=== PATIENT | female | born 1990 | race Asian ===

== ENCOUNTER 2025-02-08 19:34 | Inpatient (IN) | payer OTHER, SELFPAY ==
[2025-02-08 19:40] VITALS: BP 118/86; PULSE 78; RESP 20; TEMP 36.8; O2SAT 98
[2025-02-08 19:42] VITALS: BP 118/86; PULSE 91; RESP 18; TEMP 36.8; O2SAT 98; BMI 21.2
[2025-02-08 20:17] LABS: Add Manual Diff / Slide Review NO; Hematocrit 36.3 % (36-46); Hemoglobin 12.1 g/dL (12.0-16.0); Lymphocytes Absolute Auto 500 /uL (1100-4500); Mean Corpuscular HGB Conc 33.4 % (30-36); Mean Corpuscular Hemoglobin 27.7 PG (26-34); Mean Corpuscular Volume 82.8 fL (80-100); Platelet Count 321 X10^3/uL (150-400)
[2025-02-08 20:27] LABS: Alanine Aminotransferase 31 IU/L (<35); Albumin 4.0 g/dL (3.5-5.0); Albumin Globulin Ratio 1.3 (1.0-2.8); Alkaline Phosphatase 38 U/L (38-126); Blood Urea Nitrogen 9 mg/dL (7-17); Calcium 8.5 mg/dL (8.4-10.2); Carbon Dioxide 22 mmol/L (22-32); Chloride 105 mmol/L (98-107); Estimated Glomerular Filt Rate > 60 mL/min (>60); Globulin 3.1 g/dL (1.7-4.1); Glucose 179 mg/dL (70-99); Potassium 3.7 mmol/L (3.4-5.1); Sodium 137 mmol/L (137-145); Total Protein 7.1 g/dL (6.3-8.2)
[2025-02-08 20:33] LABS: HEMOLYSIS 34 (0-50)
[2025-02-08 21:10] LABS: Lipase 30352 U/L (23-300)
--- NOTE | 2025-02-08 22:30 | DI.CT.S_ITS ---
PROCEDURE: CT ABDOMEN PELVIS W CON INDICATIONS: Pancreatitis TECHNIQUE: After the administration of intravenous contrast, axial sections acquired from the lung bases to the pubic symphysis. Coronal and sagittal reformats were performed. For radiation dose reduction, the following was used: automated exposure control, adjustment of mA and/or kV according to patient size. COMPARISON: None. FINDINGS: Image quality: Diagnostic. Lower Chest: No significant findings. ABDOMEN: Liver: No solid mass. Hepatic steatosis. Gallbladder: Postcholecystectomy Biliary ducts: Dilation of the common bile duct without choledocholithiasis, likely post reservoir effect of the common bile duct. Pancreas: No ductal dilatation. Diffuse hypoattenuation of the pancreatic parenchyma with moderate retroperitoneal peripancreatic edema. No focal nonenhancing parenchyma. Spleen: Size is within normal limits. Adrenal Glands: No adrenal nodules. Kidneys and Ureters: No hydronephrosis. No solid mass. No complex renal cystic lesion which requires follow up. Stomach and Bowel: Normal colonic caliber, without significant wall thickening. Redundant sigmoid colon which extends into the left mid abdomen. Normal appendix. Peritoneum: Non organized retroperitoneal fluid within the peripancreatic space tracks along the left paracolic gutter and within the pouch of Efren. No peripherally enhancing collection, acute peripancreatic collection or walled-off pancreatic necrosis is identified. Ventral Wall: No significant ventral hernia. Abdominal Nodes: No retroperitoneal or mesenteric adenopathy by size criteria. Vessels: Aorta and inferior vena cava are normal in size. PELVIS: Pelvic Organs: Unremarkable. Bladder: No bladder wall thickening, accounting for underdistention. Pelvic Nodes: No enlarged lymph nodes. Miscellaneous: No inguinal hernias are seen. Bones: Multiple sclerotic foci in the inferior thoracic and lumbar spine measure up to 1.8 x 1.4 cm. The imaging appearance is is atypical for enostosis. IMPRESSION: 1. Acute interstitial edematous pancreatitis with acute peripancreatic fluid collections which are non loculated and nonenhancing. 2. Multiple sclerotic foci in the inferior thoracic and lumbar spine. The imaging characteristics are atypical for enostosis/bone island. Recommend further evaluation with MRI of the thoracic and lumbar spine with and without contrast when clinically feasible and patient is able to tolerate imaging positioning. Communication: The above findings were discussed with the ordering clinician, Dr. Stokes, by Dr. Parson via telephone on 02/08/2025 at 11:58 pm PST. Dictated by: Edward Parson M.D. on 02/08/2025 at 23:51 Approved by: Edward Parson M.D. on 02/09/2025 at 0:01
--- NOTE | 2025-02-08 22:32 | ED.ABDPAIN ---
HPI - Abdominal Pain <Daxa Stokes DO - Last Filed: 02/11/25 07:48> General Chief Complaint: Abdominal Pain Stated Complaint: abd pain Time Seen by Provider: 02/08/25 19:54 Source: patient and EMS Mode of arrival: EMS History of Present Illness HPI narrative: Patient is a healthy 34-year-old female presenting today with severe abdominal pain. She had ERCP done earlier today [facility] with for choledocholithiasis. She reports that on the way home she had severe abdominal pain and nausea. Pain is so bad that she pulled over called 911 they gave her IV Tylenol and she came POV. She continues to feel nauseous pain comes and goes in waves. Records from [facility] have been received and reviewed Postoperative diagnosis include 1. Difficult cannulation with initial cannulation of the PD after needle knife sphincterectomy with pancreatic septostomy performed. Rectal indomethacin given. 2. Subsequent cannulation of the CVD with dilated CBD noted with biliary sphincterotomy extended. 3. Balloon sweeps of the 15 mm yield hard stones and stone debris 4. Occlusion cholangiogram showed no residual filling defects and good flow of contrast at the conclusion of the procedure Related Data Previous Rx's ?Medication ?Instructions ?Recorded hydromorphone 4 mg tablet 4 mg PO Q6H PRN pain #10 tabs 02/10/25 ondansetron 4 mg disintegrating 4 mg PO Q8H PRN nausea and 02/10/25 tablet vomiting #20 tabs pantoprazole 20 mg tablet,delayed 20 mg PO DAILY #30 tabs 02/10/25 release Allergies Allergy/AdvReac Type Severity Reaction Status Date / Time No Known Drug Allergies Allergy Verified 02/08/25 19:43 Patient History <Daxa Stokes DO - Last Filed: 02/11/25 07:48> Social History household members: spouse and children Smoking Status: Never smoker Exam <Daxa Stokes DO - Last Filed: 02/11/25 07:48> Initial Vital Signs Initial Vital Signs: Vital Signs Temperature 98.2 F 02/08/25 19:40 Pulse Rate 78 02/08/25 19:40 Respiratory Rate 20 02/08/25 19:40 Blood Pressure 118/86 02/08/25 19:40 Pulse Oximetry 98 02/08/25 19:40 Oxygen Delivery Method Room Air 02/08/25 19:40 GENERAL: Alert 34-year-old female appears very uncomfortable and in no acute distress. HEENT: Head atraumatic,EOMI, pupils reactive, face symmetric, moist mucous membranes CARDIOVASCULAR: Regular rate and rhythm without murmurs, rubs or gallops. RESPIRATORY: Breath sounds equal bilaterally, no wheezes rales or rhonchi. ABDOMEN: Soft, tender no guarding no rebound EXTREMITIES: Normal range of motion, no clubbing or edema. Neurovascularly intact NEUROLOGICAL: Alert and oriented x4.Normal gait and speech. Cranial nerves II through XII grossly intact. SKIN: Warm, dry, no laceration, no petechiae, no rashes or lesions. <Horacio Gilbert, DO - Last Filed: 02/09/25 00:38> Initial Vital Signs Initial Vital Signs: Vital Signs Temperature 98.2 F 02/08/25 19:40 Pulse Rate 78 02/08/25 19:40 Respiratory Rate 20 02/08/25 19:40 Blood Pressure 118/86 02/08/25 19:40 Pulse Oximetry 98 02/08/25 19:40 Oxygen Delivery Method Room Air 02/08/25 19:40 Course <Daxa Stokes, DO - Last Filed: 02/11/25 07:48> Orders Ordered: Discontinued Medications Acetaminophen (Acetaminophen 325 Mg Tablet) 650 mg PO Q6H PRN PRN Reason: Fever/Mild Pain (1-3) Enoxaparin Sodium (Enoxaparin 40 Mg/0.4 Ml Syringe) 40 mg SUBCUT DAILY [facility] Last Admin: 02/10/25 08:43 Dose: 40 mg Documented By: Admin: 02/09/25 09:51 Dose: 40 mg Documented By: JENNI Hydromorphone HCl (Hydromorphone Hcl 0.5 Mg/0.5 Ml Syringe) 0.5 mg IV NOW ONE Stop: 02/08/25 22:31 Last Admin: 02/08/25 22:36 Dose: 0.5 mg Documented By: MATT Hydromorphone HCl (Hydromorphone 1 Mg/Ml Syringe) 1 mg IV Q3H PRN PRN Reason: Pain, Moderate (4-6) Last Admin: 02/09/25 13:15 Dose: 1 mg Documented By: Admin: 02/09/25 09:51 Dose: 1 mg Documented By: JENNI Hydromorphone HCl (Hydromorphone 1 Mg/Ml Syringe) 1 mg IV Q2H PRN PRN Reason: Pain, Moderate (4-6) Last Admin: 02/09/25 21:43 Dose: 1 mg Documented By: Admin: 02/09/25 19:37 Dose: 1 mg Documented By: Admin: 02/09/25 17:01 Dose: 1 mg Documented By: Admin: 02/09/25 15:01 Dose: 1 mg Documented By: JENNI Hydromorphone HCl (Hydromorphone 1 Mg/Ml Syringe) 2 mg IV Q2H PRN PRN Reason: Pain, Moderate (4-6) Last Admin: 02/10/25 11:47 Dose: 2 mg Documented By: ESReno Admin: 02/10/25 06:06 Dose: 2 mg Documented By: Admin: 02/10/25 02:50 Dose: 2 mg Documented By: Admin: 02/09/25 23:47 Dose: 2 mg Documented By: AM Sodium Chloride (Normal Saline 0.9%) 1,000 mls @ 1,000 mls/hr IV BOLUS ONE Stop: 02/08/25 23:29 Last Infusion: 02/09/25 00:05 Dose: Infused Documented By: RLCriselda Admin: 02/08/25 22:35 Dose: 1,000 mls/hr Documented By: MATT Sodium Chloride (Normal Saline 0.9%) 1,000 mls @ 100 mls/hr IV CONT PARI Last Infusion: 02/10/25 11:00 Dose: Infused Documented By: Admin: 02/10/25 08:42 Dose: 100 mls/hr Documented By: Infusion: 02/10/25 08:42 Dose: Infused Documented By: Admin: 02/09/25 23:38 Dose: 100 mls/hr Documented By: Infusion: 02/09/25 19:53 Dose: Infused Documented By: Admin: 02/09/25 09:53 Dose: 100 mls/hr Documented By: Infusion: 02/09/25 09:53 Dose: Infused Documented By: Admin: 02/09/25 01:59 Dose: 100 mls/hr Documented By: AD POTASSIUM CHLORIDE IN WATER (Potassium Cl 10 Meq/100 Ml Susana) 10 meq in 100 mls @ 100 mls/hr IV Q1H [facility] Stop: 02/10/25 10:44 Last Admin: 02/10/25 07:36 Dose: Not Given Documented By: MIKA Magnesium Chloride (Magnesium Chloride 64 Mg Tablet) 128 mg PO NOW ONE Stop: 02/10/25 13:01 Last Admin: 02/10/25 13:11 Dose: 128 mg Documented By: MIKA Morphine Sulfate (Morphine 4 Mg/Ml Inj) 3 mg IV Q2HR PRN PRN Reason: Pain, Severe (7-10) Last Admin: 02/09/25 05:02 Dose: 3 mg Documented By: Admin: 02/09/25 02:18 Dose: 3 mg Documented By: REINALDO Naloxone HCl (Naloxone 0.4 Mg/Ml Vial) 0.2 mg IV Q2MIN PRN PRN Reason: Opiate Reversal Ondansetron HCl (Ondansetron 4 Mg/2 Ml Inj) 4 mg IV NOW PRN PRN Reason: Nausea And Vomiting Ondansetron HCl (Ondansetron 4 Mg Odt) 4 mg PO NOW PRN PRN Reason: Nausea And Vomiting Ondansetron HCl (Ondansetron 4 Mg/2 Ml Inj) 4 mg IV Q8HR PRN PRN Reason: Nausea And Vomiting Last Admin: 02/09/25 05:02 Dose: 4 mg Documented By: REINALDO Ondansetron HCl (Ondansetron 4 Mg/2 Ml Inj) 4 mg IV Q4HR [facility] Ondansetron HCl (Ondansetron 4 Mg/2 Ml Inj) 4 mg IV Q4HR PRN PRN Reason: Nausea And Vomiting Oxycodone HCl (Oxycodone Ir 5 Mg Tablet) 5 mg PO Q3H PRN PRN Reason: Pain, Moderate (4-6) Last Admin: 02/09/25 12:00 Dose: 5 mg Documented By: Admin: 02/09/25 04:21 Dose: 5 mg Documented By: REINALDO Pantoprazole Sodium (Pantoprazole Dr 20 Mg Tablet) 20 mg PO NOW ONE Stop: 02/10/25 09:40 Last Admin: 02/10/25 09:47 Dose: 20 mg Documented By: MIKA Potassium Chloride (Potassium Chloride 20 Meq Tab) 40 meq PO Q6H [facility] Stop: 02/10/25 14:01 Last Admin: 02/10/25 13:11 Dose: 40 meq Documented By: Admin: 02/10/25 08:43 Dose: 40 meq Documented By: JENNI Prochlorperazine (Prochlorperazine 10 Mg/2 Ml Vial) 5 mg IV Q6HR PRN PRN Reason: Nausea Last Admin: 02/09/25 19:37 Dose: 5 mg Documented By: AM Vital Signs Vital signs: Vital Signs - 8 hr 02/08/25 19:40 02/08/25 19:42 02/08/25 23:07 Temperature 98.2 F 98.2 F Pulse Rate 78 91 H 87 Respiratory Rate 20 18 Blood Pressure 118/86 Blood Pressure [Left Arm] 118/86 Pulse Oximetry 98 98 97 Oxygen Delivery Method Room Air Room Air 02/08/25 23:09 02/08/25 23:09 02/08/25 23:30 Temperature Pulse Rate 84 66 Respiratory Rate 17 12 Blood Pressure 126/87 Blood Pressure [Left Arm] Pulse Oximetry 98 99 Oxygen Delivery Method Room Air 02/08/25 23:30 02/09/25 00:00 02/09/25 00:00 Temperature Pulse Rate 62 Respiratory Rate 13 Blood Pressure 113/75 133/77 Blood Pressure [Left Arm] Pulse Oximetry 99 Oxygen Delivery Method Room Air <Horacio Gilbert, DO - Last Filed: 02/09/25 00:38> Orders Ordered: Discontinued Medications Acetaminophen (Acetaminophen 325 Mg Tablet) 650 mg PO Q6H PRN PRN Reason: Fever/Mild Pain (1-3) Enoxaparin Sodium (Enoxaparin 40 Mg/0.4 Ml Syringe) 40 mg SUBCUT DAILY [facility] Last Admin: 02/10/25 08:43 Dose: 40 mg Documented By: Admin: 02/09/25 09:51 Dose: 40 mg Documented By: JENNI Hydromorphone HCl (Hydromorphone Hcl 0.5 Mg/0.5 Ml Syringe) 0.5 mg IV NOW ONE Stop: 02/08/25 22:31 Last Admin: 02/08/25 22:36 Dose: 0.5 mg Documented By: MATT Hydromorphone HCl (Hydromorphone 1 Mg/Ml Syringe) 1 mg IV Q3H PRN PRN Reason: Pain, Moderate (4-6) Last Admin: 02/09/25 13:15 Dose: 1 mg Documented By: Admin: 02/09/25 09:51 Dose: 1 mg Documented By: JENNI Hydromorphone HCl (Hydromorphone 1 Mg/Ml Syringe) 1 mg IV Q2H PRN PRN Reason: Pain, Moderate (4-6) Last Admin: 02/09/25 21:43 Dose: 1 mg Documented By: Admin: 02/09/25 19:37 Dose: 1 mg Documented By: Admin: 02/09/25 17:01 Dose: 1 mg Documented By: Admin: 02/09/25 15:01 Dose: 1 mg Documented By: JENNI Hydromorphone HCl (Hydromorphone 1 Mg/Ml Syringe) 2 mg IV Q2H PRN PRN Reason: Pain, Moderate (4-6) Last Admin: 02/10/25 11:47 Dose: 2 mg Documented By: Admin: 02/10/25 06:06 Dose: 2 mg Documented By: Admin: 02/10/25 02:50 Dose: 2 mg Documented By: Admin: 02/09/25 23:47 Dose: 2 mg Documented By: AM Sodium Chloride (Normal Saline 0.9%) 1,000 mls @ 1,000 mls/hr IV BOLUS ONE Stop: 02/08/25 23:29 Last Infusion: 02/09/25 00:05 Dose: Infused Documented By: Admin: 02/08/25 22:35 Dose: 1,000 mls/hr Documented By: HNG Sodium Chloride (Normal Saline 0.9%) 1,000 mls @ 100 mls/hr IV CONT PARI Last Infusion: 02/10/25 11:00 Dose: Infused Documented By: Admin: 02/10/25 08:42 Dose: 100 mls/hr Documented By: Infusion: 02/10/25 08:42 Dose: Infused Documented By: YALesia Admin: 02/09/25 23:38 Dose: 100 mls/hr Documented By: Infusion: 02/09/25 19:53 Dose: Infused Documented By: Admin: 02/09/25 09:53 Dose: 100 mls/hr Documented By: Infusion: 02/09/25 09:53 Dose: Infused Documented By: Admin: 02/09/25 01:59 Dose: 100 mls/hr Documented By: REINALDO POTASSIUM CHLORIDE IN WATER (Potassium Cl 10 Meq/100 Ml Susana) 10 meq in 100 mls @ 100 mls/hr IV Q1H [facility] Stop: 02/10/25 10:44 Last Admin: 02/10/25 07:36 Dose: Not Given Documented By: MIKA Magnesium Chloride (Magnesium Chloride 64 Mg Tablet) 128 mg PO NOW ONE Stop: 02/10/25 13:01 Last Admin: 02/10/25 13:11 Dose: 128 mg Documented By: MIKA Morphine Sulfate (Morphine 4 Mg/Ml Inj) 3 mg IV Q2HR PRN PRN Reason: Pain, Severe (7-10) Last Admin: 02/09/25 05:02 Dose: 3 mg Documented By: Admin: 02/09/25 02:18 Dose: 3 mg Documented By: REINALDO Naloxone HCl (Naloxone 0.4 Mg/Ml Vial) 0.2 mg IV Q2MIN PRN PRN Reason: Opiate Reversal Ondansetron HCl (Ondansetron 4 Mg/2 Ml Inj) 4 mg IV NOW PRN PRN Reason: Nausea And Vomiting Ondansetron HCl (Ondansetron 4 Mg Odt) 4 mg PO NOW PRN PRN Reason: Nausea And Vomiting Ondansetron HCl (Ondansetron 4 Mg/2 Ml Inj) 4 mg IV Q8HR PRN PRN Reason: Nausea And Vomiting Last Admin: 02/09/25 05:02 Dose: 4 mg Documented By: REINALDO Ondansetron HCl (Ondansetron 4 Mg/2 Ml Inj) 4 mg IV Q4HR [facility] Ondansetron HCl (Ondansetron 4 Mg/2 Ml Inj) 4 mg IV Q4HR PRN PRN Reason: Nausea And Vomiting Oxycodone HCl (Oxycodone Ir 5 Mg Tablet) 5 mg PO Q3H PRN PRN Reason: Pain, Moderate (4-6) Last Admin: 02/09/25 12:00 Dose: 5 mg Documented By: Admin: 02/09/25 04:21 Dose: 5 mg Documented By: REINALDO Pantoprazole Sodium (Pantoprazole Dr 20 Mg Tablet) 20 mg PO NOW ONE Stop: 02/10/25 09:40 Last Admin: 02/10/25 09:47 Dose: 20 mg Documented By: MIKA Potassium Chloride (Potassium Chloride 20 Meq Tab) 40 meq PO Q6H [facility] Stop: 02/10/25 14:01 Last Admin: 02/10/25 13:11 Dose: 40 meq Documented By: Admin: 02/10/25 08:43 Dose: 40 meq Documented By: JENNI Prochlorperazine (Prochlorperazine 10 Mg/2 Ml Vial) 5 mg IV Q6HR PRN PRN Reason: Nausea Last Admin: 02/09/25 19:37 Dose: 5 mg Documented By: AM Vital Signs Vital signs: Vital Signs - 8 hr 02/08/25 19:40 02/08/25 19:42 02/08/25 23:07 Temperature 98.2 F 98.2 F Pulse Rate 78 91 H 87 Respiratory Rate 20 18 Blood Pressure 118/86 Blood Pressure [Left Arm] 118/86 Pulse Oximetry 98 98 97 Oxygen Delivery Method Room Air Room Air 02/08/25 23:09 02/08/25 23:09 02/08/25 23:30 Temperature Pulse Rate 84 66 Respiratory Rate 17 12 Blood Pressure 126/87 Blood Pressure [Left Arm] Pulse Oximetry 98 99 Oxygen Delivery Method Room Air 02/08/25 23:30 02/09/25 00:00 02/09/25 00:00 Temperature Pulse Rate 62 Respiratory Rate 13 Blood Pressure 113/75 133/77 Blood Pressure [Left Arm] Pulse Oximetry 99 Oxygen Delivery Method Room Air MDM - Abdominal Pain <Daxa Stokes, - Last Filed: 02/11/25 07:48> Lab Data 02/10/25 05:58 02/10/25 05:58 Labs: Lab Results 02/08/25 02/08/25 Range/Units 20:08 22:52 WBC 9.8 (4.5-11.0) X10^3/uL RBC 4.39 (4.0-5.2) X10^6/uL Hgb 12.1 (12.0-16.0) g/dL Hct 36.3 (36-46) % MCV 82.8 (80-100) fL MCH 27.7 (26-34) PG MCHC 33.4 (30-36) % RDW 13.1 (11.6-14.8) % Plt Count 321 (150-400) X10^3/uL Neut % (Auto) 94.0 H (50-75) % Lymph % (Auto) 4.9 L (25-40) % [place] % (Auto) 1.0 L (3-14) % Eos % (Auto) 0.0 L (2-4) % Baso % (Auto) 0.1 (0-2) % Neut # (Auto) 9200 H (0864-0761) /uL Lymph # (Auto) 500 L (1168-2786) /uL [place] # (Auto) 100 (0-900) /uL Eos # (Auto) 0 (0-450) /uL Baso # (Auto) 0 (0-100) /uL Sodium 137 (137-145) mmol/L Potassium 3.7 (3.4-5.1) mmol/L Chloride 105 (98-107) mmol/L Carbon Dioxide 22 (22-32) mmol/L BUN 9 (7-17) mg/dL Creatinine 0.55 (0.52-1.04) mg/dL Estimated GFR > 60 (>60) mL/min BUN/Creatinine Ratio 16.4 (6-22) Glucose 179 H (70-99) mg/dL Calcium 8.5 (8.4-10.2) mg/dL Total Bilirubin 0.6 (0.2-1.3) mg/dL AST 43 H (14-36) IU/L ALT 31 (<35) IU/L Alkaline Phosphatase 38 (38-126) U/L Total Protein 7.1 (6.3-8.2) g/dL Albumin 4.0 (3.5-5.0) g/dL Globulin 3.1 (1.7-4.1) g/dL Albumin/Globulin Ratio 1.3 (1.0-2.8) Lipase 04394 H (23-300) U/L Urine RBC 1-5/hpf (0-5/HPF) Urine WBC 0-1/hpf (0-5/HPF) Ur Squamous Epith Cells 1-5 /hpf (0-5/HPF) Urine Bacteria Few (2-10) H (None) Ur Culture Indicated? Cult not indicated Vol Urine Centrifuged 10ml (spun) Point of care testing: Point of Care Testing Test Results Negative Urine Dip Bedside Urine Glucose 100 mg/dl Bedside Urine Bilirubin - Negative Bedside Urine Ketone +/- 5 Urine Specific [place] 1.015 Bedside Urine Occult Blood + Bedside Urine pH 6.5 Bedside Urine Protein - Negative Bedside Urine Urobilinogen - Negative Bedside Urine Nitrite - Negative Bedside Urine Leukocytes - Negative Esterase Imaging Data CT scan - abdomen/pelvis: Radiologist's Impression: PROCEDURE: CT ABDOMEN PELVIS W CON INDICATIONS: Pancreatitis TECHNIQUE: After the administration of intravenous contrast, axial sections acquired from the lung bases to the pubic symphysis. Coronal and sagittal reformats were performed. For radiation dose reduction, the following was used: automated exposure control, adjustment of mA and/or kV according to patient size. COMPARISON: None. FINDINGS: Image quality: Diagnostic. Lower Chest: No significant findings. ABDOMEN: Liver: No solid mass. Hepatic steatosis. Gallbladder: Postcholecystectomy Biliary ducts: Dilation of the common bile duct without choledocholithiasis, likely post reservoir effect of the common bile duct. Pancreas: No ductal dilatation. Diffuse hypoattenuation of the pancreatic parenchyma with moderate retroperitoneal peripancreatic edema. No focal nonenhancing parenchyma. Spleen: Size is within normal limits. Adrenal Glands: No adrenal nodules. Kidneys and Ureters: No hydronephrosis. No solid mass. No complex renal cystic lesion which requires follow up. Stomach and Bowel: Normal colonic caliber, without significant wall thickening. Redundant sigmoid colon which extends into the left mid abdomen. Normal appendix. Peritoneum: Non organized retroperitoneal fluid within the peripancreatic space tracks along the left paracolic gutter and within the pouch of Efren. No peripherally enhancing collection, acute peripancreatic collection or walled-off pancreatic necrosis is identified. Ventral Wall: No significant ventral hernia. Abdominal Nodes: No retroperitoneal or mesenteric adenopathy by size criteria. Vessels: Aorta and inferior vena cava are normal in size. PELVIS: Pelvic Organs: Unremarkable. Bladder: No bladder wall thickening, accounting for underdistention. Pelvic Nodes: No enlarged lymph nodes. Miscellaneous: No inguinal hernias are seen. Bones: Multiple sclerotic foci in the inferior thoracic and lumbar spine measure up to 1.8 x 1.4 cm. The imaging appearance is is atypical for enostosis. IMPRESSION: 1. Acute interstitial edematous pancreatitis with acute peripancreatic fluid collections which are non loculated and nonenhancing. 2. Multiple sclerotic foci in the inferior thoracic and lumbar spine. The imaging characteristics are atypical for enostosis/bone island. Recommend further evaluation with MRI of the thoracic and lumbar spine with and without contrast when clinically feasible and patient is able to tolerate imaging positioning. Communication: The above findings were discussed with the ordering clinician, Dr. Stokes, by Dr. Parson via telephone on 02/08/2025 at 11:58 pm PST. Dictated by: Edward Parson M.D. on 02/08/2025 at 23:51 MDM Narrative Medical decision making narrative: MDM CC: Abdominal pain Complicating co-morbidities: Choledocholithiasis Data collected from: Patient and has been Medical records reviewed: [facility] earlier today Differential considered: Perforation pancreatitis bowel obstruction Exam documented above, pertinent findings include: Patient 34-year-old female appears very uncomfortable abdomen is tender Lab Test results independently reviewed as above. Pertinent findings: Lipase 30,352 Bilirubin 0.6, AST 43, ALT 31 alk-phos 38 CBC shows no leukocytosis or anemia Independently reviewed EKG as above Imaging studies independently reviewed: CT pancreatitis no significant complication. There is concern of the lumbar spine radiology Dr. Varela did call recommended are with and without contrast, nonemergent Consultations: [phone] DR. Dodge recommends reaching out to GI if they do not recommend transfer okay to keep IA and he will consult [phone] DR. Campuzano, GI at [facility] updated patient's symptoms test results okay to treat conservatively however if symptoms worsen may need transferring back Treatments: IV fluids Dilaudid Zofran Re-evaluations: [ ] Discussion: Patient 34-year-old female presenting today with abdominal pain. This post ERCP pain. She is found to have pancreatitis with a lipase of 30,000. No leukocytosis. Contacted GI who recommended supportive care only. She is receiving IV fluids pain medications overall appears much more comfortable. <Horacio Gilbert, DO - Last Filed: 02/09/25 00:38> Lab Data Labs: Lab Results 02/08/25 02/08/25 Range/Units 20:08 22:52 WBC 9.8 (4.5-11.0) X10^3/uL RBC 4.39 (4.0-5.2) X10^6/uL Hgb 12.1 (12.0-16.0) g/dL Hct 36.3 (36-46) % MCV 82.8 (80-100) fL MCH 27.7 (26-34) PG MCHC 33.4 (30-36) % RDW 13.1 (11.6-14.8) % Plt Count 321 (150-400) X10^3/uL Neut % (Auto) 94.0 H (50-75) % Lymph % (Auto) 4.9 L (25-40) % [place] % (Auto) 1.0 L (3-14) % Eos % (Auto) 0.0 L (2-4) % Baso % (Auto) 0.1 (0-2) % Neut # (Auto) 9200 H (2847-6361) /uL Lymph # (Auto) 500 L (8760-2905) /uL [place] # (Auto) 100 (0-900) /uL Eos # (Auto) 0 (0-450) /uL Baso # (Auto) 0 (0-100) /uL Sodium 137 (137-145) mmol/L Potassium 3.7 (3.4-5.1) mmol/L Chloride 105 (98-107) mmol/L Carbon Dioxide 22 (22-32) mmol/L BUN 9 (7-17) mg/dL Creatinine 0.55 (0.52-1.04) mg/dL Estimated GFR > 60 (>60) mL/min BUN/Creatinine Ratio 16.4 (6-22) Glucose 179 H (70-99) mg/dL Calcium 8.5 (8.4-10.2) mg/dL Total Bilirubin 0.6 (0.2-1.3) mg/dL AST 43 H (14-36) IU/L ALT 31 (<35) IU/L Alkaline Phosphatase 38 (38-126) U/L Total Protein 7.1 (6.3-8.2) g/dL Albumin 4.0 (3.5-5.0) g/dL Globulin 3.1 (1.7-4.1) g/dL Albumin/Globulin Ratio 1.3 (1.0-2.8) Lipase 27637 H (23-300) U/L Urine RBC 1-5/hpf (0-5/HPF) Urine WBC 0-1/hpf (0-5/HPF) Ur Squamous Epith Cells 1-5 /hpf (0-5/HPF) Urine Bacteria Few (2-10) H (None) Ur Culture Indicated? Cult not indicated Vol Urine Centrifuged 10ml (spun) Point of care testing: Point of Care Testing Test Results Negative Urine Dip Bedside Urine Glucose 100 mg/dl Bedside Urine Bilirubin - Negative Bedside Urine Ketone +/- 5 Urine Specific [place] 1.015 Bedside Urine Occult Blood + Bedside Urine pH 6.5 Bedside Urine Protein - Negative Bedside Urine Urobilinogen - Negative Bedside Urine Nitrite - Negative Bedside Urine Leukocytes - Negative Esterase MDM Narrative Medical decision making narrative: [place] CC: Abdominal pain Complicating co-morbidities: Choledocholithiasis Data collected from: Patient and has been Medical records reviewed: [facility] earlier today Differential considered: Perforation pancreatitis bowel obstruction Exam documented above, pertinent findings include: Patient 34-year-old female appears very uncomfortable abdomen is tender Lab Test results independently reviewed as above. Pertinent findings: Lipase 30,352 Bilirubin 0.6, AST 43, ALT 31 alk-phos 38 CBC shows no leukocytosis or anemia Independently reviewed EKG as above Imaging studies independently reviewed: CT pancreatitis no significant complication. There is concern of the lumbar spine radiology Dr. Varela did call recommended are with and without contrast, nonemergent Consultations: [phone] DR. Dodge recommends reaching out to GI if they do not recommend transfer okay to keep IA and he will consult [phone] DR. Campuzano, GI at [facility] updated patient's symptoms test results okay to treat conservatively however if symptoms worsen may need transferring back Treatments: IV fluids Dilaudid Zofran Re-evaluations: Discussion: Patient 34-year-old female presenting today with abdominal pain. This post ERCP pain. She is found to have pancreatitis with a lipase of 30,000. No leukocytosis. Contacted GI who recommended supportive care only. She is receiving IV fluids pain medications overall appears much more comfortable. Case discussed with hospitalist graciously accepted the patient for inpatient admission Discharge Plan Departure Patient Disposition: Admitted As Inpatient Clinical Impression: Lesion of lumbar spine Pancreatitis Qualifiers: Chronicity: acute Pancreatitis type: idiopathic Acute pancreatitis complication: unspecified Qualified Code(s): K85.00 - Idiopathic acute pancreatitis without necrosis or infection Admit Date/Time: 02/09/25 00:38 Admit Provider: Sage Dailey
[2025-02-08] MEDS: SODIUM CHLORIDE 0.9% 1,000 ML 1000 ML IV (22:35)
[2025-02-08 23:07] VITALS: PULSE 87; O2SAT 97
[2025-02-08 23:09] VITALS: BP 126/87; PULSE 84; RESP 17; O2SAT 98
[2025-02-08 23:30] VITALS: BP 113/75; PULSE 66; RESP 12; O2SAT 99
[2025-02-08 23:32] LABS: Culture Indicated Urine Cult Not Indicated
[2025-02-09] VITALS (9 sets, daily range): BP systolic 108–138; BP diastolic 66–89; PULSE 62–89; RESP 12–18; TEMP 36.7–37.3; O2SAT 97–99; BMI 21.2
[2025-02-09] MEDS: SODIUM CHLORIDE 0.9% 1,000 ML 100 ML IV ×3 (01:59→23:38)
[2025-02-09] MEDS: MORPHINE 4 MG/ML INJ 3 MG IV ×2 (02:18→05:02)
[2025-02-09] MEDS: ONDANSETRON 4 MG/2 ML INJ IV (05:02)
--- NOTE | 2025-02-09 06:45 | P.HP_ITS ---
History of Present Illness History of Present Illness Date Patient Seen: 02/09/25 Time Patient Seen: 06:45 Chief complaint: abd pain Narrative: The pt is a 34 yo who underwent a ERCP on 02/08 the day of presentation to the Er for gallstones by Dr. Gaston, GI specialist at [facility] (has had a lap joaquim in 11/22) and had severe pain afterwards while driving home just several hours after the procedure. She called 911 and was brought to our facility for evaluation. The pain is mid-epigastric radiating to the back. Her lipase in the ER was >30,000. She has nausea and vomiting, no fevers, hx of lower back pain since 2019 which she blames on her epidural from child . She denies any other PMHx, has been on Protonix and propanolol, she was born in the [facility] and has family member with TB and tests positive when tested. Pain is rated a 3-4 out of 10 during my interview [facility] Social History household members: spouse and children Smoking Status: Never smoker Meds Home Medications and Allergies Allergies Allergy/AdvReac Type Severity Reaction Status Date / Time No Known Drug Allergies Allergy Verified 02/08/25 19:43 Exam Vital Signs (past 8 hours): - 02/08/25 23:07 02/08/25 23:09 02/08/25 23:09 Temperature Pulse Rate 87 84 Respiratory Rate 17 Blood Pressure 126/87 Pulse Oximetry 97 98 Oxygen Delivery Method Room Air Oxygen Flow Rate 02/08/25 23:30 02/08/25 23:30 02/09/25 00:00 Temperature Pulse Rate 66 62 Respiratory Rate 12 13 Blood Pressure 113/75 Pulse Oximetry 99 99 Oxygen Delivery Method Room Air Oxygen Flow Rate 02/09/25 00:00 02/09/25 00:30 02/09/25 00:30 Temperature Pulse Rate 71 Respiratory Rate 12 Blood Pressure 133/77 108/69 Pulse Oximetry 98 Oxygen Delivery Method Oxygen Flow Rate 02/09/25 01:00 02/09/25 01:00 02/09/25 01:21 Temperature 99.1 F Pulse Rate 64 86 Respiratory Rate 12 18 Blood Pressure 121/66 138/89 Pulse Oximetry 98 97 Oxygen Delivery Method Oxygen Flow Rate 0 Oxygen Delivery Method Room Air Oxygen Flow Rate 0 Const General: cooperative, healthy appearing and comfortable Orientation: alert and oriented x3 Resp Effort & Inspection: normal respiratory effort Auscultation: clear to auscultation bilaterally Cardio Rate: regular rate Rhythm: regular rhythm Neuro General: moves all extremities and no focal motor deficits Objective Labs 02/08/25 20:08 02/08/25 20:08 Labs: Laboratory Results - last 24 hr 02/08/25 02/08/25 20:08 22:52 WBC 9.8 RBC 4.39 Hgb 12.1 Hct 36.3 MCV 82.8 MCH 27.7 MCHC 33.4 RDW 13.1 Plt Count 321 Neut % (Auto) 94.0 H Lymph % (Auto) 4.9 L [place] % (Auto) 1.0 L Eos % (Auto) 0.0 L Baso % (Auto) 0.1 Neut # (Auto) 9200 H Lymph # (Auto) 500 L [place] # (Auto) 100 Eos # (Auto) 0 Baso # (Auto) 0 Sodium 137 Potassium 3.7 Chloride 105 Carbon Dioxide 22 BUN 9 Creatinine 0.55 Estimated GFR > 60 BUN/Creatinine Ratio 16.4 Glucose 179 H Calcium 8.5 Total Bilirubin 0.6 AST 43 H ALT 31 Alkaline Phosphatase 38 Total Protein 7.1 Albumin 4.0 Globulin 3.1 Albumin/Globulin Ratio 1.3 Lipase 35320 H Urine RBC 1-5/hpf Urine WBC 0-1/hpf Ur Squamous Epith Cells 1-5 /hpf Urine Bacteria Few (2-10) H Ur Culture Indicated? Cult not indicated Vol Urine Centrifuged 10ml (spun) Assessment & Plan Assessment & Plan narrative: 1. Acute Pancreatitis-post cannulation of the CBD by ERCP. The reports from the procedure stated that a sphincterotomy was performed and 3 stones removed, IVFluids started, anti-emetics ordered and IV pain meds available. 2. 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 It appears chronic in nature at least for the past 5 years, and inpatient vs outpt work up is needed, MRI ordered, CT scan reviewed by myself, pain meds available, Time-Based Coding :: [TOTAL MINUTES] spent with patient and on the chart (including review of chart, obtaining history, exam, reviewing outside data, placing orders, documenting exam and treatment plan, and counseling patient) on [DATE]. Quality VTE Deep Vein Thrombosis/Pulmonary Embolism Present on Admission: No
--- NOTE | 2025-02-09 07:09 | DI.MRI.S_ITS ---
PROCEDURE: MR THORACIC SPINE WO/W CON INDICATIONS: lytic lesion in spine TECHNIQUE: Noncontrast sagittal T1 spin echo and T2 fast spin echo, sagittal STIR, axial T1 and T2 fast spin echo through the thoracic spine. After the administration of contrast, axial and sagittal T1 spin echo with fat saturation through the thoracic spine. COMPARISON: [facility], CT, CT ABDOMEN PELVIS W CON, 02/08/2025, 22:59. FINDINGS: Image quality: Excellent. Alignment and curvature: There is normal bony alignment. Marrow: Marrow is of normal overall signal. No acute vertebral body compression fractures. Previously identified areas of sclerosis within the lower lumbar spine demonstrate no appreciable contrast enhancement. They are hypointense on T1. Spinal cord: Visualized spinal cord is of normal signal and size, without abnormal enhancement. Paraspinous soft tissues: No paravertebral masses or abnormal enhancement. Miscellaneous: Central canal and foramina appear widely patent at all scanned levels. Pancreatic edema with adjacent peripancreatic fluid is present. IMPRESSION: Peripancreatic edema and fluid most consistent with pancreatitis. No organized fluid collection. Areas of sclerosis within the lower thoracic spine vertebral bodies demonstrate no enhancement. There are hypointense on T1. Etiology remains indeterminate although numerous bone island/dystrophic calcification should be considered. As clinically indicated, bone scan may be helpful for further evaluation. Dictated by: Melissa Davis M.D. on 02/09/2025 at 13:24 Approved by: Melissa Davis M.D. on 02/09/2025 at 13:28
--- NOTE | 2025-02-09 07:10 | DI.MRI.S_ITS ---
PROCEDURE: MR LUMBAR SPINE WO/W CON INDICATIONS: lytic lesion on CT scan TECHNIQUE: Noncontrast sagittal T1 spin echo and T2 fast spin echo, sagittal STIR, axial T1 and T2 fast spin echo through the lumbar spine. In cases with scoliosis, additional coronal T2 fast spin echo may be performed. After the administration of contrast, sagittal and axial T1 spin echo with fat saturation through the lumbar spine. COMPARISON: [facility], MR, MR THORACIC SPINE WO/W CON, 02/09/2025, 11:47. [facility], CT, CT ABDOMEN PELVIS W CON, 02/08/2025, 22:59. FINDINGS: Image quality: Excellent. Alignment and curvature: There is normal bony alignment. Marrow: Marrow is of normal overall signal. Previously identified scattered areas of sclerosis within the lumbar spine demonstrate no contrast enhancement. There are hypointense on T1. No acute vertebral body compression fractures. No suspicious marrow enhancement. Spinal cord: Conus medullaris terminates at the L1 level. Visualized spinal cord demonstrates normal signal, without suspicious enhancement. Paraspinous soft tissues: No paravertebral masses or abnormal enhancement. Mild disc desiccation is present at L5-S1. No gross spinal stenosis or foraminal narrowing. Pancreatic edema and fluid without organized collection. IMPRESSION: Areas of sclerosis previously identified do not demonstrate contrast enhancement. They are hypointense on T1. These could represent bone islands or dystrophic calcifications. Bone scan may be helpful as clinically indicated for further evaluation. Pancreatic edema with fluid most consistent with pancreatitis. No abscess. Dictated by: Melissa Davis M.D. on 02/09/2025 at 13:32 Approved by: Melissa Davis M.D. on 02/09/2025 at 13:33
[2025-02-09 09:49] LABS: Lipase 19654 U/L (23-300)
[2025-02-09] MEDS: ENOXAPARIN 40 MG/0.4 ML SYRINGE SUBCUT (09:51)
--- NOTE | 2025-02-09 11:50 | P.CONS_ITS ---
History of Present Illness Consult details Date Patient Seen: 02/09/25 Time Patient Seen: 11:50 Chief complaint: abd pain Narrative: The patient is a 34-year-old woman who had an ERCP yesterday at [facility] for retained common duct stones. She had had a laparoscopic cholecystectomy with Dr. Clifton in [place] about a year ago. After her ERCP yesterday she was driving home with her . They had just crossed the suctioned pass when her pain became unbearable and they called 911. She was brought to [facility] ER. She was noted to have a lipase of 30,000 in the ER last night. She was admitted for IV fluid resuscitation and pain management. She has been NPO. This morning lipase is down to 19,000. Her symptoms have improved somewhat. Meds Home Medications and Allergies Allergies Allergy/AdvReac Type Severity Reaction Status Date / Time No Known Drug Allergies Allergy Verified 02/08/25 19:43 Exam Vital Signs (past 8 hours): - 02/09/25 08:00 Pulse Oximetry 99 Oxygen Delivery Method Room Air Oxygen Delivery Method Room Air Oxygen Flow Rate 0 Narrative Exam Narrative: Abdomen is soft, minimally tender Objective Labs 02/08/25 20:08 02/08/25 20:08 Labs: Laboratory Results - last 24 hr 02/08/25 02/08/25 02/09/25 20:08 22:52 08:40 WBC 9.8 RBC 4.39 Hgb 12.1 Hct 36.3 MCV 82.8 MCH 27.7 MCHC 33.4 RDW 13.1 Plt Count 321 Neut % (Auto) 94.0 H Lymph % (Auto) 4.9 L [place] % (Auto) 1.0 L Eos % (Auto) 0.0 L Baso % (Auto) 0.1 Neut # (Auto) 9200 H Lymph # (Auto) 500 L [place] # (Auto) 100 Eos # (Auto) 0 Baso # (Auto) 0 Sodium 137 Potassium 3.7 Chloride 105 Carbon Dioxide 22 BUN 9 Creatinine 0.55 Estimated GFR > 60 BUN/Creatinine Ratio 16.4 Glucose 179 H Calcium 8.5 Total Bilirubin 0.6 AST 43 H ALT 31 Alkaline Phosphatase 38 Total Protein 7.1 Albumin 4.0 Globulin 3.1 Albumin/Globulin Ratio 1.3 Lipase 64275 H 13461 H Urine RBC 1-5/hpf Urine WBC 0-1/hpf Ur Squamous Epith Cells 1-5 /hpf Urine Bacteria Few (2-10) H Ur Culture Indicated? Cult not indicated Vol Urine Centrifuged 10ml (spun) PFSH Social History household members: spouse and children Tobacco & Substance Use Smoking Status: Never smoker Assessment & Plan Assessment and plan (1) Pancreatitis: Qualifiers: Chronicity: acute Pancreatitis type: idiopathic Acute pancreatitis complication: unspecified Qualified Code(s): K85.00 - Idiopathic acute pancreatitis without necrosis or infection Status: Acute Plan Post ERCP pancreatitis IV fluids and NPO today If her symptoms have improved significantly by tomorrow morning and her lipase continues to trend downward she could be started on clear liquids and her diet can be gradually advance as tolerates. Time-Based Coding :: [TOTAL MINUTES] spent with patient and on the chart (including review of chart, obtaining history, exam, reviewing outside data, placing orders, documenting exam and treatment plan, and counseling patient) on [DATE]. PROFEE Charge Codes Inpatient or Observation consultation: [id number]
--- NOTE | 2025-02-09 15:51 | CM.DANOTE ---
DCP Assessment note pt is a 34yo F POD1 ERCP at [facility]. she was driving home to [place] when she had sudden onset pain and was brought to this ED. STONE ENGRAVER reviewed EMR. per provider/chart, developed sudden onset pancreatitis. plan is to pending improvements, slowly advance diet. getting IV abx. per chart, lives with spouse and children in [place]. no anticipated needs. P: home when medically stable, likely a few day. pending diet. will continue to follow in case any additional DCP needs arise MED [place] Discharge Planning/Care Management CM Discharge Assessment Start: 02/09/25 00:46 Freq: Status: Active Protocol: Document 02/09/25 15:48 SL (Rec: 02/09/25 15:51 SL [id number]) Discharge Planning Assessment Assigned Discharge MED [place] Insurance PW DPOA/Assigned Jp, spouse Designee Name Contact Information [phone] Advance Directives? No History Provided By Patient Prior Living House Arrangements Household Members spouse,children Type of Drives own vehicle transporation used prior to admit Independent with ADL Yes 's Is patient alert and Yes oriented? Discharge Plan Home Review Status In Process Please Provide Date 02/09/25 Initial DC Assessment Was Performed Next Review Type Continued Stay Review
--- NOTE | 2025-02-09 16:01 | PM.PN.1 ---
Subjective Subjective Interval history: 34-year-old female with history of recurring pancreatitis who was admitted overnight with post ERCP pancreatitis. Patient reports she has had pancreatitis episodically for quite a few years. She notes prior to having her gallbladder removed 1 year ago, she had had episodes of pancreatitis that went unrecognized. She notes physicians told her she had had gastritis. Ultimately, she notes she was diagnosed with gallstone pancreatitis and underwent cholecystectomy a year ago. At that time, they thought she would not have any recurrent episodes. However, recently it was determined that she continued to have bouts of pancreatitis. She underwent an ERCP yesterday and they determined she had 3 retained stones. At the time of discharge, she was told if she had recurring pain she should take Tylenol. This morning, she did have an episode of emesis and vomited noodles. She went down for an MRI as well this afternoon, and had emesis again. She was not getting pain relief with morphine, but after transitioning to IV Dilaudid earlier today, she states she is getting better relief. The pain returns after about 2 hours. She continues to have nausea. Exam Vital Signs (past 8 hours): Oxygen Delivery Method Room Air Oxygen Flow Rate 0 Narrative Exam Narrative: GEN: Alert and oriented x 3, NAD HEENT:NC, Face symmetric CHEST: Respiratory excursions symmetric, CTAB CV: RRR, no M/R/G ABD: Soft, tender to palpation in the epigastrium and right upper quadrant/ND, BT present but hypoactive in all 4 quadrants, no organomegaly or masses EXTR: warm, well perfused, no C/C/E SKIN: warm and dry, no rash NEURO: Alert and oriented x 3, nonfocal Objective Labs 02/08/25 20:08 02/08/25 20:08 Labs: Laboratory Results - last 24 hr 02/08/25 02/08/25 02/09/25 20:08 22:52 08:40 WBC 9.8 RBC 4.39 Hgb 12.1 Hct 36.3 MCV 82.8 MCH 27.7 MCHC 33.4 RDW 13.1 Plt Count 321 Neut % (Auto) 94.0 H Lymph % (Auto) 4.9 L [place] % (Auto) 1.0 L Eos % (Auto) 0.0 L Baso % (Auto) 0.1 Neut # (Auto) 9200 H Lymph # (Auto) 500 L [place] # (Auto) 100 Eos # (Auto) 0 Baso # (Auto) 0 Sodium 137 Potassium 3.7 Chloride 105 Carbon Dioxide 22 BUN 9 Creatinine 0.55 Estimated GFR > 60 BUN/Creatinine Ratio 16.4 Glucose 179 H Calcium 8.5 Total Bilirubin 0.6 AST 43 H ALT 31 Alkaline Phosphatase 38 Total Protein 7.1 Albumin 4.0 Globulin 3.1 Albumin/Globulin Ratio 1.3 Lipase 36618 H 70315 H Urine RBC 1-5/hpf Urine WBC 0-1/hpf Ur Squamous Epith Cells 1-5 /hpf Urine Bacteria Few (2-10) H Ur Culture Indicated? Cult not indicated Vol Urine Centrifuged 10ml (spun) PFSH Social History household members: spouse and children Smoking Status: Never smoker Assessment & Plan Assessment & Plan narrative: 1. Acute post-ERCP pancreatitis On admission, her lipase was 30,352. This morning it is down to 19,654. She continues to have significant pain, nausea, and vomiting. Will continue bowel rest. Will change the Dilaudid from q.3 hours as needed q.2 hours as needed. Advised she is symptomatically improved tomorrow will advance her diet clear liquids. Continue antiemetics alternating between ondansetron and Compazine as needed. 2. Retained gallstones She notes this was found on her ERCP yesterday. She is uncertain what was done, but presumably the stones were removed. 3. Enostosis of thoracic and lumbar spine MRI of the lumbar and thoracic spine were done today which revealed bone islands which appeared benign. This was reviewed with the patient and her spouse Code status Full Prophylaxis Low Telly score Disposition Pending, but suspect she will require another 2-3 days inpatient Time-Based Coding :: [TOTAL MINUTES] spent with patient and on the chart (including review of chart, obtaining history, exam, reviewing outside data, placing orders, documenting exam and treatment plan, and counseling patient) on [DATE]. Quality VTE Deep Vein Thrombosis/Pulmonary Embolism Present on Admission: No
[2025-02-09] MEDS: PROCHLORPERAZINE 10 MG/2 ML VIAL 5 MG IV (19:37)
[2025-02-10 05:11] LABS: Cancer (Carbohydrate) Ag 19-9 16 U/mL (0-35)
[2025-02-10 06:08] LABS: Add Manual Diff / Slide Review NO; Hematocrit 32.4 % (36-46); Hemoglobin 11.0 g/dL (12.0-16.0); Lymphocytes Absolute Auto 1500 /uL (1100-4500); Mean Corpuscular HGB Conc 33.8 % (30-36); Mean Corpuscular Hemoglobin 28.0 PG (26-34); Mean Corpuscular Volume 82.9 fL (80-100); Platelet Count 251 X10^3/uL (150-400)
[2025-02-10 06:15] LABS: Alanine Aminotransferase 13 IU/L (<35); Albumin 3.2 g/dL (3.5-5.0); Albumin Globulin Ratio 1.1 (1.0-2.8); Alkaline Phosphatase 38 U/L (38-126); Blood Urea Nitrogen 8 mg/dL (7-17); Calcium 7.2 mg/dL (8.4-10.2); Carbon Dioxide 21 mmol/L (22-32); Chloride 109 mmol/L (98-107); Estimated Glomerular Filt Rate > 60 mL/min (>60); Globulin 2.8 g/dL (1.7-4.1); Glucose 86 mg/dL (70-99); HEMOLYSIS < 15 (0-50); Phosphorous 2.7 mg/dL (2.5-4.5); Potassium 3.3 mmol/L (3.4-5.1); Sodium 137 mmol/L (137-145); Total Protein 6.0 g/dL (6.3-8.2)
[2025-02-10 07:30] VITALS: O2SAT 91
[2025-02-10 08:20] VITALS: BP 145/77; PULSE 119; RESP 16; TEMP 37.7; O2SAT 91
[2025-02-10 08:25] LABS: Lipase 11084 U/L (23-300)
[2025-02-10] MEDS: SODIUM CHLORIDE 0.9% 1,000 ML 100 ML IV (08:42)
[2025-02-10] MEDS: POTASSIUM CHLORIDE 20 MEQ TAB 40 MEQ PO ×2 (08:43→13:11)
[2025-02-10] MEDS: ENOXAPARIN 40 MG/0.4 ML SYRINGE SUBCUT (08:43)
--- NOTE | 2025-02-10 08:51 | P.PN_ITS ---
Subjective Subjective Date Patient Seen: 02/10/25 Time Patient Seen: 08:51 Interval history: Feeling better Nausea and abd pain improved Pain is mostly in RLQ/right flank Exam Vital Signs (past 8 hours): - 02/10/25 08:20 Temperature 99.8 F H Pulse Rate 119 H Respiratory Rate 16 Blood Pressure 145/77 H Pulse Oximetry 91 Oxygen Flow Rate 0 Oxygen Delivery Method Room Air Oxygen Flow Rate 0 GI Other: ABD: well-healed laparoscopic incisions, non-peritoneal exam, most tenderness to palpation RLQ/right flank Objective Labs 02/10/25 05:58 02/10/25 05:58 Labs: Laboratory Results - last 24 hr 02/09/25 02/10/25 02/10/25 08:40 05:58 07:57 WBC 14.7 H RBC 3.91 L Hgb 11.0 L Hct 32.4 L MCV 82.9 MCH 28.0 MCHC 33.8 RDW 13.7 Plt Count 251 Neut % (Auto) 84.1 H Lymph % (Auto) 10.4 L [place] % (Auto) 5.2 Eos % (Auto) 0.0 L Baso % (Auto) 0.3 Neut # (Auto) 64536 H Lymph # (Auto) 1500 [place] # (Auto) 800 Eos # (Auto) 0 Baso # (Auto) 0 Sodium 137 Potassium 3.3 L Chloride 109 H Carbon Dioxide 21 L BUN 8 Creatinine 0.64 Estimated GFR > 60 BUN/Creatinine Ratio 12.5 Glucose 86 Calcium 7.2 L Phosphorus 2.7 Total Bilirubin 0.9 AST 21 ALT 13 Alkaline Phosphatase 38 C-Reactive Protein 6.0 H Total Protein 6.0 L Albumin 3.2 L Globulin 2.8 Albumin/Globulin Ratio 1.1 Lipase 17002 H 11146 H CA 19-9 Antigen 16 PFSH Social History household members: spouse and children Smoking Status: Never smoker Assessment & Plan Assessment and plan (1) Pancreatitis: Qualifiers: Acute pancreatitis complication: unspecified Chronicity: acute P ancreatitis type: idiopathic Qualified Code(s): K85.00 - Idiopathic acute pancreatitis without necrosis or infection Status: Acute Plan Severe acute pancreatitis after ERCP for retained CBD stones Clinically improved lipase 11,000 this morning, down from 30,000 Recommend clear liquid trial, tolerating water with meds, ice chips Low K+, Mg level pending Ca 7.2, corrects to 7.84 with alb, monitor WBC 14.7, hgb 11, plts 251, NLR 8 (down from 19) Recommend strict I/O's to monitor 3rd spacing fluid status Will follow Time-Based Coding :: [TOTAL MINUTES] spent with patient and on the chart (including review of chart, obtaining history, exam, reviewing outside data, placing orders, documenting exam and treatment plan, and counseling patient) on [DATE]. Quality VTE Deep Vein Thrombosis/Pulmonary Embolism Present on Admission: No IH PROFEE Emr Trainer Document charge(s): Yes Charge Codes Subsequent inpatient/observation care: [id number]
--- NOTE | 2025-02-10 09:04 | CM.DPNOTE ---
DCP note PROGRAMMER reviewed EMR per RN report, pt still NPO but likely to advance diet today. Surgeon in to see pt now. no new CM needs identified P: anticipate dc home once pancreatitis resolves/can tolerate general diet. another day or so. home with family and likely OP f/u. Will continue to follow in case any additional DCP needs should arise Emilia Rayo, MED
[2025-02-10] MEDS: PANTOPRAZOLE DR 20 MG TABLET PO (09:47)
[2025-02-10 09:59] LABS: Magnesium 1.4 mg/dL (1.6-2.3)
[2025-02-10] MEDS: MAGNESIUM CHLORIDE 64 MG TABLET 128 MG PO (13:11)
--- NOTE | 2025-02-10 14:21 | PC.NURSE ---
Pt is dressed and ready for discharge home with Spouse. IV has been removed. Went over d/c instructions with Pt and Spouse -discussed d/c meds, time of last dose, reviewed stroke education, encouraged low-fat full liquid diet and then to proceed to a low fat regular diet as tolerated. If nausea resumes-go back to a low fat full liquid diet again. Follow up with your PCP as directed. Drink plenty of fluids to prevent constipation or dehdyration. No driving while on narcotics. Pt denied further questions and was taken out via w/c by EXTERNAL RELATIONS MANAGER to POV with Spouse and all belongings.
--- NOTE | 2025-02-10 17:57 | P.DS_ITS ---
History of Present Illness History of Present Illness Chief complaint: abd pain Narrative: Per H&P: The pt is a 34 yo who underwent a ERCP on 02/08 the day of presentation to the Er for gallstones by Dr. Gaston, GI specialist at [facility] (has had a lap joaquim in 11/22) and had severe pain afterwards while driving home just several hours after the procedure. She called 911 and was brought to our facility for evaluation. The pain is mid-epigastric radiating to the back. Her lipase in the ER was >30,000. She has nausea and vomiting, no fevers, hx of lower back pain since 2019 which she blames on her epidural from child . She denies any other PMHx, has been on Protonix and propanolol, she was born in the [facility] and has family member with TB and tests positive when tested. Pain is rated a 3-4 out of 10 during my interview Discharge Providers Provider Date of admission: 02/09/25 00:38 Discharge Date: 02/10/25 Consults: General surgery Discharge provider: Trinidad Buenrostro MD Summary Hospital Course Discharge Diagnosis: 1. Post ERCP pancreatitis 2. Retained gallstones, status post ERCP and gallstone removal 3. Enostosis of thoracic and lumbar spines Hospital Course: 34-year-old female with history of recurring pancreatitis who was admitted on February 08 with post ERCP pancreatitis. Patient reported she has had pancreatitis episodically for quite a few years. She notes prior to having her gallbladder removed 1 year ago, she had had episodes of pancreatitis that went unrecognized. She notes physicians told her she had had gastritis. Ultimately, she notes she was diagnosed with gallstone pancreatitis and underwent cholecystectomy a year ago. At that time, they thought she would not have any recurrent episodes. However, recently it was determined that she continued to have bouts of pancreatitis. She underwent an ERCP on February 07 and they determined she had 3 retained stones. At the time of discharge, she was told if she had recurring pain she should take Tylenol. On the date of admission, she was found to have acute pancreatitis with a lipase of 30,000. She had significant pain, nausea, and vomiting. He was admitted for bowel rest, IV analgesia, and hydration. On the day following admission, she continued to have pain and nausea and vomiting. She remained NPO. Her pain rapidly improved as did her nausea. On the morning of February 10, she had no residual symptoms. Her diet was advanced to clear liquids which she tolerated well. She subsequently advanced to a full liquid diet without difficulty. She is subsequently being discharged home on a full liquid diet with oral hydromorphone and ondansetron to be used sparingly if she has any recurring symptoms. She is instructed to continue full liquid diet for the next 24-48 hours and then to transition to a low-fat regular diet. She is encouraged to follow-up with her clerical adjuster regarding her hospitalization for recurrent pancreatitis. On her CT scan of the abdomen and pelvis, it was noted she had abnormalities in the lumbar and thoracic spines. She underwent MRI scans to further evaluate and was noted to have benign appearing bone islands. No further evaluation is needed. Patient is discharged in stable condition. Status at Discharge Cognitive/behavioral status at discharge: at baseline, oriented Functional status at discharge: independent ambulation Overall status at discharge: patient is progressing back to baseline Exam Vital Signs (past 8 hours): Oxygen Delivery Method Room Air Oxygen Flow Rate 0 Narrative Exam Narrative: GEN: Pleasant adult female, Alert and oriented x 3, NAD HEENT:NC, Face symmetric CHEST: Respiratory excursions symmetric, CTAB CV: RRR, no M/R/G ABD: Soft, mild midepigastric tenderness, BT present in all 4 quadrants, no organomegaly or masses EXTR: warm, well perfused, no C/C/E SKIN: warm and dry, no rash NEURO: Alert and oriented x 3, nonfocal Objective Labs 02/10/25 05:58 02/10/25 05:58 Labs: Laboratory Results - last 24 hr 02/09/25 02/10/25 02/10/25 08:40 05:58 07:57 WBC 14.7 H RBC 3.91 L Hgb 11.0 L Hct 32.4 L MCV 82.9 MCH 28.0 MCHC 33.8 RDW 13.7 Plt Count 251 Neut % (Auto) 84.1 H Lymph % (Auto) 10.4 L [place] % (Auto) 5.2 Eos % (Auto) 0.0 L Baso % (Auto) 0.3 Neut # (Auto) 59293 H Lymph # (Auto) 1500 [place] # (Auto) 800 Eos # (Auto) 0 Baso # (Auto) 0 Sodium 137 Potassium 3.3 L Chloride 109 H Carbon Dioxide 21 L BUN 8 Creatinine 0.64 Estimated GFR > 60 BUN/Creatinine Ratio 12.5 Glucose 86 Calcium 7.2 L Phosphorus 2.7 Magnesium 1.4 L Total Bilirubin 0.9 AST 21 ALT 13 Alkaline Phosphatase 38 C-Reactive Protein 6.0 H Total Protein 6.0 L Albumin 3.2 L Globulin 2.8 Albumin/Globulin Ratio 1.1 Lipase 86299 H CA 19-9 Antigen 16 PFSH Social History household members: spouse and children Smoking Status: Never smoker Discharge Plan Discharge Plan Patient Disposition: Home Provider Discharge Comment: You were admitted with post ERCP pancreatitis. Your initial lipase was above 30,000. It came down to 19,654 yesterday. Today it is down to 11,084. Please continue a low-fat full liquid diet for the next day or 2. As long as your pain continues to improve and you are not having nausea, you may then advanced to a low-fat regular diet. If you develop increased abdominal pain or nausea, please resume a full liquid diet for an additional day or 2 before trying a low-fat regular diet again. Please contact your clerical adjuster office to advise them of your hospitalization. Return to the ED: Increased shortness of breath/chest pain. Inability to hold down food/fluids/medications. Fevers/chills. Discharge orders & Medications Prescriptions: New hydromorphone 4 mg tablet 4 mg PO Q6H PRN (Reason: pain) Qty: 10 0RF ondansetron 4 mg tablet,disintegrating 4 mg PO Q8H PRN (Reason: nausea and vomiting) Qty: 20 0RF pantoprazole 20 mg tablet,delayed release (DR/EC) 20 mg PO DAILY Qty: 30 0RF Discharge Health Status Multidrug resistant organism: No MDRO Diet/Activity/Treatments Diet: Diet as Tolerated and Full Liquid Activity: As tolerated Oxygen: N/A Visit Report/Discharge Packet Instructions: DI for Pancreatitis, DI for Prescription Opioid Use, Ondansetron, Hydromorphone Stand Alone Forms: Patient Portal/API, Stroke Signs & Symptoms, Work/Release Restrictions Quality VTE Deep Vein Thrombosis/Pulmonary Embolism Present on Admission: No
== END 2025-02-10 14:28 | disposition home or self-care (01) | DRG 252 ==
LOC: ED 02-09 00:33 → AC 02-09 00:39
PROVIDERS: Emergency Medicine; Family Medicine; Admitting Provider Internal Medicine; Emergency Provider Family Medicine; Referring Provider Family Medicine; Visit Provider Internal Medicine
DX: K91.89 Other postprocedural complications and disorders of digestive system (principal); K85.80 Other acute pancreatitis without necrosis or infection; K91.86 Retained cholelithiasis following cholecystectomy; M48.8X6 Other specified spondylopathies, lumbar region; Z98.890 Other specified postprocedural states; Z90.49 Acquired absence of other specified parts of digestive tract
CPT/HCPCS: 36415; 72157; 72158; 74177; 80053; 81003; 81015; 81025; 83690; 83735; 84080; 84100; 85025; 86140; 86301; 96361; 96374; 99284; A9579; J0780; J1171; J1650; J2272; J2405; J7030; Q9967